=== PATIENT | female | born 2005 ===

== ENCOUNTER 2024-06-19 17:14 | Outpatient (REF) | payer BC, SELFPAY ==
[2024-06-22 12:03] LABS: Chlamydia Result Negative (Negative); GC Result Negative (Negative)
== END 2024-06-19 17:15 | disposition home or self-care (01) ==
LOC: NCHCN 17:14
PROVIDERS: Visit Provider Physician Assistant
DX: N89.8 Other specified noninflammatory disorders of vagina (principal)
CPT/HCPCS: 87491; 87591

== ENCOUNTER 2024-08-20 21:20 | Outpatient (REF) | payer BC, SELFPAY ==
[2024-08-22 11:27] LABS: HSV Type 1 Ab, IgG Positive (Negative); HSV Type 2 Ab, IgG Negative (Negative)
== END 2024-08-20 21:21 | disposition home or self-care (01) ==
LOC: NCHCN 21:20
PROVIDERS: Visit Provider Nurse Practitioner Family
DX: A60.9 Anogenital herpesviral infection, unspecified (principal)
CPT/HCPCS: 86695; 86696